=== PATIENT | female | born 1955 | race African-American/Black ===

== ENCOUNTER 2017-11-21 04:42 | Emergency (ER) | payer MEDICARE, OTHER ==
--- NOTE | 2017-11-21 05:17 | EDM.PDOC ---
ED HPI GENERAL MEDICAL PROBLEM - General Chief Complaint: Skin Complaint Stated Complaint: POSS GLASS OR ROCK IN HEAD Time Seen by Provider: 11/21/17 05:00 Source of Information: Reports: Patient History Limitations: Reports: No Limitations - History of Present Illness INITIAL COMMENTS - FREE TEXT/NARRATIVE: This is a 61-year-old female. Apparently a month ago or so she fell out of her son's pickup truck and cut her right forehead. It has since healed but she noted the other day that when she rubbed it with a washcloth she had some pain. When she felt that she feels like there something in her forehead maybe a rock or something. So she comes to the ER because she wants this evaluated. I explained to her that since the wound is healed I am not going to cut her forehead to find the foreign body. She would need to go to see a surgeon to have that done. - Related Data Allergies Allergy/AdvReac Type Severity Reaction Status Date / Time No Known Allergies Allergy Verified 11/21/17 04:51 Home Meds: Home Meds HCTZ/Triamterene [Maxzide 25-37.5 MG] 1 tab PO DAILY 11/21/17 [History] amLODIPine Besylate [Norvasc] 2.5 mg PO DAILY 11/21/17 [History] Past Medical History Cardiovascular History: Reports: High Cholesterol, Hypertension Psychiatric History: Reports: Anxiety Social & Family History - Family History Family Medical History: Noncontributory - Tobacco Use Smoking Status *Q: Unknown Ever Smoked ED ROS GENERAL - Review of Systems Review Of Systems: See Below Constitutional: Denies: Fever, Chills HEENT: Reports: Other (As per history of present illness) Respiratory: Reports: No Symptoms Cardiovascular: Reports: No Symptoms Endocrine: Reports: No Symptoms GI/Abdominal: Reports: No Symptoms : Reports: No Symptoms Musculoskeletal: Reports: No Symptoms Skin: Reports: No Symptoms Neurological: Reports: No Symptoms Psychiatric: Reports: No Symptoms Hematologic/Lymphatic: Reports: No Symptoms ED EXAM, SKIN/RASH Exam: See Below Exam Limited By: No Limitations General Appearance: Alert, WD/WN, No Apparent Distress Eye Exam: Bilateral Eye: Normal Inspection Ears: Normal External Exam Nose: Normal Inspection Throat/Mouth: Normal Inspection, Normal Lips, Normal Voice, No Airway Compromise Head: Other (On the right forehead there is an scar noted and there is a rough area there that looks like a scab but does not feel like a foreign body, when I push around in the area I don't feel a foreign body that but she says it is tender.) Neck: Supple Respiratory/Chest: No Respiratory Distress Back Exam: Full Range of Motion Extremities: Normal Inspection, Normal Range of Motion Neurological: Alert, Oriented Psychiatric: Normal Affect, Normal Mood Skin: Warm, Dry Course - Vital Signs Last Recorded V/S: Last Vital Signs Temp 98.1 F 11/21/17 04:52 Pulse 70 11/21/17 04:52 Resp 18 11/21/17 04:52 BP 165/85 H 11/21/17 04:52 Pulse Ox 98 11/21/17 04:52 Departure - Departure Time of Disposition: 05:21 Disposition: Home, Self-Care 01 Condition: Good Clinical Impression: Foreign body in skin, Healing laceration - Discharge Information *PRESCRIPTION DRUG MONITORING PROGRAM REVIEWED*: Not Applicable *COPY OF PRESCRIPTION DRUG MONITORING REPORT IN PATIENT [place]: Not Applicable Forms: ED Department Discharge Additional Instructions: Once you get home call your family doctor about this possible rock or glass your forehead and see if they be willing to get it out for you and if not see if they will send you to a surgeon to have it removed, return to the ER as needed
== END 2017-11-21 05:35 | disposition home or self-care (01) ==
LOC: JD.ED 04:42
DX: S01.02XA Laceration with foreign body of scalp, initial encounter (principal); Z79.899 Other long term (current) drug therapy; V89.9XXA Person injured in unspecified vehicle accident, initial encounter
CPT/HCPCS: 99282